=== PATIENT | female | born 1990 | race African-American/Black ===

== ENCOUNTER 2016-07-11 07:00 | Emergency (ER) | payer OTHER ==
--- NOTE | ~2016-07-11 | CR63 ---
[facility] A Service of [facility] RADIOLOGY TEXT RESULTS PATIENT: BRANDYN SAN LOCATION: [facility] : [birth year] UNIT #: [id number] AGE: [address]: Clif Briones MD SEX: F ORDER DR: [id number] [facility] [address] [place], [place] [address] [id number] E MR#: [id number] Acc #: [id number] NAME: BRANDYN SAN : 1990 SEX: F STUDY DATE/TIME: 07/11/2016 7:23 UNIT: [facility] ROOM: STUDY DESCRIPTION: CR Chest 2 View Attending Physician: Clif Briones M.D. Ordering Physician: Clif Briones M.D. Primary Care Physician: Ernst Wiseman M.D. MEDICAL IMAGING REPORT This report is preliminary unless electronic signature is present EXAM Chest 2 views 07/11/2016 HISTORY Cough, flu-like symptoms, fever, headache began yesterday. FINDINGS PA and lateral radiographs of the chest are presented. The study is of poor quality secondary to poor radiographic technique and limitations imposed by the patient's very large body habitus. Comparison is dated 06/12/2016. The bony structures are unremarkable. The heart is normal to upper limits of normal in size. Similar appearance on prior study. The lungs are well inflated and clear without evidence of acute infectious or inflammatory disease, pleural effusion or pneumothorax. No suspicious nodule. Dictated by... Milad Woodward M.D. THIS IS AN ELECTRONICALLY VERIFIED REPORT Milad Woodward M.D. at 07/13/2016 8:22 PM LINDA/michael TD: 07/11/2016 09:07 JOB #: [id number] MEDICAL IMAGING REPORT COPY
[2016-07-11 07:21] LABS: INFLUENZA A NEG (NEG); INFLUENZA B NEG (NEG)
== END 2016-07-11 08:08 | disposition home or self-care (01) ==
LOC: CED 07:00
PROVIDERS: Emergency Medicine
DX: J02.9 Acute pharyngitis, unspecified (principal)
CPT/HCPCS: 71020; 87804; 87880; 99283

== ENCOUNTER 2016-08-29 23:59 | Emergency (ER) | payer OTHER ==
[2016-08-30 03:15] LABS: BASOPHIL# 0.1 X10e3 (0-0.3); EOSINOPHIL# 0.1 X10e3 (0-0.7); EOSINOPHIL% 1.7 % (0.0-7.0); HEMATOCRIT 34.8 % (35.0-45.0); HEMOGLOBIN 11.1 gm/dL (12.0-16.0); LYMPHOCYTE# 3.2 X10e3 (1.0-3.5); LYMPHOCYTE% 39.2 % (17.0-45.0); MEAN CELL VOLUME 81.8 FL (83-96); MEAN CORPUSCULAR HEMOGLOBIN 26.1 PG (28-34); MEAN CORPUSCULAR HGB CONC 31.9 g/dL (30-36); MEAN PLATELET VOLUME 7.6 FL (6.5-11.5); MONOCYTE# 0.7 X10e3 (0-1.0); MONOCYTE% 8.6 % (3.0-12.0); NEUTROPHIL# 4.1 X10e3 (1.5-7.1); NEUTROPHIL% 49.5 % (40-75); PLATELET COUNT 342 X10e3 (140-420); RED BLOOD COUNT 4.26 X10e (3.90-5.30); WHITE BLOOD COUNT 8.3 X10e3 (4.0-10.5)
[2016-08-30 03:21] LABS: DIFF IND NO
[2016-08-30 03:29] LABS: URINE APPEARANCE CLEAR; URINE BILIRUBIN NEG (NEG); URINE BLOOD 3+ (NEG); URINE COLOR YELLOW; URINE GLUCOSE NEG (NEG); URINE KETONE NEG (NEG); URINE LEUKOCYTE ESTERASE TRACE (NEG); URINE NITRATE NEG (NEG); URINE PROTEIN TRACE (NEG); URINE SPECIFIC GRAVITY 1.022 (1.003-1.035)
[2016-08-30 03:31] LABS: CULTURE INDICATED? YES; URBCS1 AUWI 100-200 /[HPF] (0-2); URINE BACTERIA AUWI 1+ (NEGATIVE); URINE SQUAMOUS EPITHELIAL CELL NONE SEEN /[HPF]; UWBCS1 AUWI 0-2 (0-5)
[2016-09-01 09:12] LABS: CHLAMYDIA TRACH Not Detected (Not Detected); N GONOR Not Detected (Not Detected)
== END 2016-08-30 03:31 | disposition home or self-care (01) ==
LOC: CED 23:59
PROVIDERS: Nurse Practitioner Family
DX: A59.09 Other urogenital trichomoniasis (principal); N93.8 Other specified abnormal uterine and vaginal bleeding
CPT/HCPCS: 36415; 81003; 84703; 85025; 87086; 87491; 87591; 87808; 87905; 99283

== ENCOUNTER 2016-09-08 19:37 | Emergency (ER) | payer OTHER | END 2016-09-08 20:00 | disposition home or self-care (01) | LOC: CFTX 19:37 | DX: S00.531A Contusion of lip, initial encounter (principal); W20.8XXA Other cause of strike by thrown, projected or falling object, initial encounter; Y92.9 Unspecified place or not applicable | CPT/HCPCS: 99283 ==

== ENCOUNTER 2016-11-07 05:41 | Emergency (ER) | payer OTHER ==
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
== END 2016-11-07 07:25 | disposition home or self-care (01) ==
LOC: CED 05:41
DX: S23.3XXA Sprain of ligaments of thoracic spine, initial encounter (principal); S33.5XXA Sprain of ligaments of lumbar spine, initial encounter; S80.02XA Contusion of left knee, initial encounter; V43.52XA Car driver injured in collision with other type car in traffic accident, initial encounter; Y93.89 Activity, other specified; Y92.410 Unspecified street and highway as the place of occurrence of the external cause
CPT/HCPCS: 29530; 73562; 99283